=== PATIENT | female | born 1980 | race Caucasian/White ===

== ENCOUNTER 2022-01-08 10:45 | Outpatient (CLI) | payer OTHER, SELFPAY ==
--- NOTE | ~2022-01-08 | MM_ITS ---
EXAMINATION: MM screening abi BI w kennedy HISTORY: Screening mammogram; baseline examination TECHNIQUE: Craniocaudal and mediolateral oblique 3-D tomosynthesis images were obtained and synthetic 2-D images were generated. CAD analysis was submitted and interpreted. COMPARISON: No prior mammogram is available for comparison at this institution. BREAST PARENCHYMAL COMPOSITION: There are scattered areas of fibroglandular density. FINDINGS: An asymmetric approximately 1.6 cm circumscribed mass is noted in the lower mid right breas t in the inner aspect of the lower inner quadrant. Diagnostic right mammogram and right breast ultras ound examination are recommended. No suspicious mass, architectural distortion, malignant calcification, skin thickening or retraction of either breast is noted otherwise. IMPRESSION: 1. Asymmetric 1.6 cm circumscribed mass in the lower mid right breast, lower inner quadrant 2. Diagnostic right mammogram and right breast ultrasound examination are recommended BI-RADS Category 0: Incomplete: Needs additional imaging evaluation. Reviewed, dictated and finalized at location A. INERY MOVER IMPRESSION: 1. Asymmetric 1.6 cm circumscribed mass in the lower mid right breast, lower in ner quadrant 2. Diagnostic right mammogram and right breast ultrasound examination are recom mended BI-RADS Category 0: Incomplete: Needs additional imaging evaluation.
== END 2022-01-08 10:46 | disposition home or self-care (01) ==
LOC: ANHIMG 10:49
PROVIDERS: PCP Advanced Practice Midwife; Visit Provider Advanced Practice Midwife
DX: Z12.31 Encounter for screening mammogram for malignant neoplasm of breast (principal); R92.8 Other abnormal and inconclusive findings on diagnostic imaging of breast
CPT/HCPCS: 77063; 77067

== ENCOUNTER 2022-01-29 11:22 | Outpatient (CLI) | payer OTHER, SELFPAY ==
--- NOTE | ~2022-01-29 | MMUS_ITS ---
EXAMINATION: MM diagnostic abi RT w kennedy, US breast RT limited HISTORY: Right breast mass on screening mammogram TECHNIQUE: Additional 3-D tomosynthesis images of the right breast were performed and synthetic 2-D i mages were generated. CAD analysis was submitted and interpreted. High resolution limited right breas t ultrasound was performed. COMPARISON: 01/08/2022 FINDINGS: MAMMOGRAPHIC FINDINGS: There is a 1.7 x 1.1 cm oval, circumscribed, equal and low-density mass in the middle third of the lo wer-outer breast at the 5:00 location 8 cm from the nipple. ULTRASOUND: There is a 1.7 x 1.1 cm hypoechoic mass with no posterior features or internal vascularity at the 6:0 0 location 5 cm from the nipple. IMPRESSION: 1. Indeterminate right breast mass. 2. Ultrasound-guided biopsy is recommended. BI-RADS category 4, suspicious findings. Reviewed, dictated and finalized at location A. HING MACHINE OPERATOR IMPRESSION: 1. Indeterminate right breast mass. 2. Ultrasound-guided biopsy is recommended. BI-RADS category 4, suspicious findings.
== END 2022-01-29 11:23 | disposition home or self-care (01) ==
PROVIDERS: PCP Advanced Practice Midwife; Visit Provider Obstetrics & Gynecology Gynecology
DX: R92.8 Other abnormal and inconclusive findings on diagnostic imaging of breast (principal)
CPT/HCPCS: 76642; 77061; 77065; G0279

== ENCOUNTER 2022-02-12 10:05 | Outpatient (CLI) | payer OTHER, SELFPAY ==
--- NOTE | ~2022-02-12 | MMUS_ITS ---
EXAMINATION: US breast biopsy RT w image, MM post biopsy invasive RT DATE: 02/12/2022 11:55 (accession [id number]), 02/12/2022 11:51 (accession [id number]) INDICATION: Indeterminate mass of the lower right breast at the 6:00 location. Ultrasound-guided core biopsy is requested to evaluate for malignancy. TECHNIQUE AND FINDINGS: The risks and potential benefits of the procedure were discussed with the patient including bleeding and infection. A time out was performed. The skin of the right breast was prepared and draped in usua l sterile fashion. Lidocaine was used for superficial anesthesia. Lidocaine with epinephrine was used for deep anesthesia. A vacuum-assisted biopsy needle was advanced through to the outer edge of the region of interest from a lateral approach utilizing sonographic guidance. A total of five tissue core samples were obtained through the lesion. A tissue marker clip was then placed at the biopsy site. Hemostasis was achieved . A sterile bandage was applied. The patient tolerated procedure well. A small hematoma is noted at the biopsy site on the mammogram o btained for clip placement. The patient was given verbal instructions to return to the Emergency Depa rtment in the event of severe breast pain or rapid breast enlargement. A two view right breast mammog willie was obtained to document tissue marker clip placement. IMPRESSION: 1. Successful ultrasound-guided vacuum-assisted biopsy of right breast mass with tissue marker placem ent. Reviewed, dictated and finalized at location A. TING PRESS OPERATOR IMPRESSION: 1. Successful ultrasound-guided vacuum-assisted biopsy of right breast mass wit h tissue marker placement.
== END 2022-02-12 10:06 | disposition home or self-care (01) ==
PROVIDERS: PCP Advanced Practice Midwife; Visit Provider Surgery
DX: R92.8 Other abnormal and inconclusive findings on diagnostic imaging of breast (principal)
CPT/HCPCS: 19083; 88305; 88342; A4648

== ENCOUNTER 2023-05-08 09:41 | Outpatient (CLI) | payer BC, SELFPAY ==
--- NOTE | ~2023-05-08 | US_ITS ---
Pelvic ultrasound. Clinical History: Menorrhagia Technique: Realtime transabdominal and transvaginal scanning of the pelvis was performed. Color flow Doppler and Doppler spectral analysis were performed. Findings: The uterus is anteverted. The endometrial stripe has a thickness of 13 mm. No myometrial f ocal mass is identified. Cervical nabothian cysts are present. The right ovary measures 1.6 x 1.2 x 1.2 cm. No significant right ovarian or adnexal mass is seen. The left ovary measures 2.2 x 2.1 x 2.0 cm. Left ovarian simple cyst measures 2 cm in diameter. There is no evidence of free fluid in the cul de sac. Impression: 2 cm left ovarian cyst, of doubtful clinical significance. No other significant findings. Reviewed, dictated and finalized at [facility]. SUPERVISOR Impression: 2 cm left ovarian cyst, of doubtful clinical significance. No other significant findings.
== END 2023-05-08 09:42 | disposition home or self-care (01) ==
PROVIDERS: PCP Advanced Practice Midwife; Visit Provider Advanced Practice Midwife
DX: N92.1 Excessive and frequent menstruation with irregular cycle (principal); N83.292 Other ovarian cyst, left side
CPT/HCPCS: 76830; 76856

== ENCOUNTER 2023-06-17 08:31 | Outpatient (CLI) | payer BC, SELFPAY ==
[2023-06-17 09:07] LABS: Hematocrit 42.1 % (37.0-47.0); Hemoglobin 13.2 g/dL (12.0-15.0)
== END 2023-06-17 08:32 | disposition home or self-care (01) ==
LOC: ANHSURGERY 08:38
PROVIDERS: Anesthesiology; Visit Provider Obstetrics & Gynecology Gynecology
DX: D64.9 Anemia, unspecified (principal); Z01.818 Encounter for other preprocedural examination
CPT/HCPCS: 36415; 85014; 85018

== ENCOUNTER 2023-06-24 01:54 | Day surgery (SDC) | payer BC, SELFPAY ==
[2023-06-11 14:40] VITALS: BMI 36.6
--- NOTE | 2023-06-11 14:50 | PC.NURSE ---
Report to the Outpatient Waiting Room, entrance under the green pavilion located off [facility], at time 07:30AM on date 06/24/23. Planned Procedure Time: 09:30AM. Time changes happen often and if your time is changed the preop area will call you the afternoon before. - You and your visitor will be asked to self-screen and do not enter if you have any COVID symptoms. - A mask is optional within the hospital at this time. Patients may have clear liquids (water, carbonated beverages, clear teas, apple juice) until 3 hours prior to surgery (06:30AM) with a maximum of 20 ounces. - No food from midnight until time of surgery Take the following medications with a SIP of water the morning of surgery: N/A DO NOT STOP ANY OF YOUR OTHER PRESCRIPTION MEDICATIONS PRIOR TO SURGERY ?EXCEPT THE FOLLOWING Medications to discontinue per physician VITAMINS/SUPPLEMENTS Date to take last dose 06/19/22 Please no make-up, nail thai, hairspray, perfume, deodorant, or body powder the day of surgery. No jewelry (including any body piercings) or valuables the day of surgery, leave them at home. Please take a shower or bath the night before, or the morning of, surgery with an antibacterial soap. Wear comfortable, loose fitting clothing. - Jewelry must be removed prior to entering the operating room. Rings and piercings that are not removed may be cut off. - The hospital will not accept responsibility for valuables. - Please leave all valuables, including medications, at home the day of surgery. If you are going home after surgery, a licensed airport shuttle driver must drive you home. - NO public transportation without another adult if you receive anesthesia. - We recommend that an adult stay with you for 24 hours following discharge. - We also recommend that you do not drive, make important decision, drink alcoholic beverages, or take any drugs that were not prescribed by your health care provider for at least 24 hours after your discharge time. Follow any additional instructions given to you from your surgeon. If you or anyone in your household have experienced Covid symptoms in the past week, please notify your surgeon or the nurse liaison at the phone number below for possible testing. Telephone instructions given to PATIENT and asked if any additional questions and then verbalized understanding. Patient advised to call surgeon office or pre surgery nurse liaison [phone] if any additional questions.
--- NOTE | 2023-06-24 07:20 | P.HP_ITS ---
History of Present Illness History of Present Illness Consent: Risks, benefits, and alternatives have been discussed and questions answered. Patient agrees to proceed with procedure. Chief complaint: Menorrhagia Narrative: Cinthia Moeller is a 42 year old female with heavy and irregular cycles. Pelvic ultrasound was normal. It was recommended to undergo D&C hysteroscopy for further evaluation. Risks of infection, bleeding, perforation, and possible pathology are discussed. Patient voices understanding and agrees to proceed. Review of Systems Review of Systems: not repeated day of surgery; patient states no changes in status [facility] Past Medical History Medical History (Updated 06/24/23 @ 07:22 by Gabby Boyle MD) Anxiety Depression Surgical History Surgical History (Updated 06/24/23 @ 07:22 by Gabby Boyle MD) History of bilateral tubal ligation History of 2010, 2015, 2018 Family History Family History Other Diabetes mellitus Heart disease Hypertension Social History Social History Smoking status: Never smoker Second hand tobacco smoke exposure: No Alcohol intake: former Alcohol use details: USED TO DRINK 10/WEEK Substance use: never Substance use type: does not use Living arrangements: with family Spiritual care concerns: No Meds Home Medications and Allergies Home Medications Medication Instructions Recorded Confirmed Type Iron (ferrous sulfate) 1 tablet PO BID 06/11/23 06/11/23 History One Daily Women's 1 tablet PO DAILY 06/11/23 06/11/23 History Vitamin D3 1 tablet PO DAILY 06/11/23 06/11/23 History magnesium 1 tab-cap PO DAILY 06/11/23 06/11/23 History omeprazole 20 mg capsule,delayed 20 mg PO DAILY 06/11/23 06/11/23 History release Allergies Allergy/AdvReac Type Severity Reaction Status Date / Time No Known Allergies Allergy Verified 06/11/23 14:40 Exam Const: General: healthy appearing and alert Orientation/consciousness: patient oriented x3 Resp: Effort & Inspection: normal respiratory effort GI: GI Palp: Yes Soft to palpation, No Tenderness to palpation present (GI) and No Palpable mass present : External Female Exam: normal external appearance Speculum Exam - Vagina: normal appearance of the vagina and normal vaginal discharge Speculum Exam - Cervix: normal appearance of the cervix Bimanual exam- vagina & uterus: uterine size normal and consistency normal Bimanual Exam- Adnexa, other: normal adnexae and No adnexal tenderness Neuro: General: patient oriented x3 Assessment and Plan Assessment and plan (1) Menorrhagia: Code(s): N92.0 - Excessive and frequent menstruation with regular cycle Status: Acute Assessment and Plan: plan to proceed with D&C hysteroscopy
--- NOTE | 2023-06-24 07:20 | WPDHPUPDATE1 ---
History and Physical Update Update Date/Time: 06/24/23 07:20 History and Physical has been reviewed, including an updated exam of the patient. There are NO changes in the patient's condition. Risks, benefits, and alternatives have been discussed and questions answered. Patient agrees to proceed with procedure.
[2023-06-24 07:35] VITALS: BP 123/96; PULSE 84; RESP 18; TEMP 36.2; O2SAT 100
[2023-06-24] MEDS: LACTATED RINGERS 1,000 ML 30 ML IV CONT (08:00)
[2023-06-24] MEDS: ACETAMINOPHEN 500 MG TABLET 1000 MG PO (08:02)
--- NOTE | 2023-06-24 08:32 | WPDANESEPPF ---
Anes - Initial Pre Proc Eval Procedure: Operation Date: 06/24/23 09:30 Proposed Procedures p Hysteroscopy Dilation and Curettage - Gabby Boyle MD Date/Time: 06/24/23 08:32 Surgeon: Gabby Boyle MD Pre Op Diagnosis: Menorrhagia Patient Data Age: 42 Gender: F Height: 1.65 m Weight: 95.5 kg Last Vital Signs Temp 97.1 F L 06/24/23 07:35 Pulse 84 06/24/23 07:35 Resp 18 06/24/23 07:35 BP 123/96 H 06/24/23 07:35 Pulse Ox 100 06/24/23 07:35 O2 Del Method Room Air 06/24/23 07:35 Allergies Allergy/AdvReac Type Severity Reaction Status Date / Time No Known Allergies Allergy Verified 06/11/23 14:40 Home Medications Medication Instructions Recorded Confirmed Type Iron (ferrous sulfate) 1 tablet PO BID 06/11/23 06/24/23 History One Daily Women's 1 tablet PO DAILY 06/11/23 06/24/23 History Vitamin D3 1 tablet PO DAILY 06/11/23 06/24/23 History magnesium 1 tab-cap PO DAILY 06/11/23 06/24/23 History omeprazole 20 mg capsule,delayed 20 mg PO DAILY 06/11/23 06/24/23 History release Patient hx anesthesia problems: none Family hx anesthesia problems: none Results Review: All pre-operative results and documents have been reviewed as part of the pre-operative evaluation. [facility] Past Medical History Medical History Anxiety Depression Surgical History Surgical History History of bilateral tubal ligation History of 2010, 2016, 2019 Family History Family History Other Diabetes mellitus Heart disease Hypertension Social History Social History Smoking status: Never smoker Second hand tobacco smoke exposure: No Alcohol intake: former Alcohol use details: USED TO DRINK 10/WEEK Substance use: never Substance use type: does not use Living arrangements: with family Spiritual care concerns: No Anes - Eval Final PreProcedure Day of Procedure 06/24/23 08:32 Patient weight: obese Heart: regular rate and rhythm Lungs: clear to auscultation Airway: Mallampati scale Neurological: alert and oriented Last oral intake: >/= 8 hours ASA classification: II Emergent: no Anesthetic plan: proceed Anesthesia type and monitoring: general GIVS and standard monitoring Results Review: All pre-operative results and documents have been reviewed as part of the pre-operative evaluation. Informed Consent: The patient's anesthetic plan and its attendant risks and benefits were discussed with the patient/family/POA. Questions were solicited and answers provided to the satisfaction of the patient/family/POA.
[2023-06-24 09:40] VITALS: BP 109/54; PULSE 56; RESP 16; O2SAT 97
--- NOTE | 2023-06-24 09:43 | W.PM.PROC2 ---
Procedure Note - Detailed Date of Procedure 06/24/23 Pre-op Diagnosis Menorrhagia Post-op Diagnosis Same Procedure Performed hysteroscopy D&C Surgeon Gabby Boyle MD Anesthesia MAC Findings uterus sounds to 7cm and appears grossly normal Description of Procedure The patient is taken to the operating room and placed under anesthesia in the dorsal lithotomy position. She was prepped and draped in the usual sterile fashion. [place] speculum was placed in the vagina and the cervix grasped on the anterior lip with a tenaculum. Uterus is sounded to 7cm. The diagnostic hysteroscope was placed and with no abnormalities noted it is removed. The OO sharp curette is used to curette the endometrium until a good uterine cry was noted in all areas. All instruments are removed. Sponge, needle, and instrument counts are correct per the OR staff. Patient was awakened from anesthesia and taken to recovery in stable condition. Estimated Blood Loss 5 Drains No Packing No Pathology Yes ( Endometrial curettings) Complications No immediate complications Condition Stable Disposition PACU
[2023-06-24 10:10] VITALS: BP 121/51; PULSE 82
== END 2023-06-24 10:30 | disposition home or self-care (01) ==
PROVIDERS: Visit Provider Obstetrics & Gynecology Gynecology
PROC: 0U5B8ZZ Destruction of Endometrium, Via Natural or Artificial Opening Endoscopic (ICD-10-PCS; CPT 58563; principal; 2023-06-24 09:30)
DX: N92.0 Excessive and frequent menstruation with regular cycle (principal); F41.9 Anxiety disorder, unspecified; F32.A Depression, unspecified; E66.9 Obesity, unspecified; Z68.35 Body mass index [BMI] 35.0-35.9, adult; Z98.890 Other specified postprocedural states; Z82.49 Family history of ischemic heart disease and other diseases of the circulatory system
CPT/HCPCS: 58558; 88305; A9270; J1100; J1885; J2250; J2405; J2704; J3010; J7120

== ENCOUNTER 2023-08-28 12:44 | Outpatient (CLI) | payer BC, SELFPAY ==
--- NOTE | ~2023-08-28 | US_ITS ---
US pelvic complete w TV Ordering provider: Whitney Mitchell CNM History: . Pelvic pain, IUD strings . Comparison: None. Technique: Transabdominal and endovaginal ultrasound of the pelvis (Doppler ultrasound interrogation techniques used as needed for this exam.) FINDINGS: CERVIX: Normal. UTERUS: Measures 8.6x 4.9x 5.2 cm in length which is within normal limits and is anteverted. No myom etrial masses. ENDOMETRIUM: Normal in thickness measuring 5 mm. IUD is noted. CUL DE SAC: No free fluid. RIGHT OVARY: Normal in size measuring 2.9x 2.7x 2.5 cm. Cyst is seen in the right ovary measuring 2.3 x 2.2 x 2.2 cm. Normal echotexture. Doppler vascular flow present. LEFT OVARY: Not seen. ADNEXA: Normal. No mass. IMPRESSION: Right ovarian cyst. Otherwise, normal pelvic ultrasound. Reviewed, dictated and finalized at location A.
== END 2023-08-28 12:45 ==
LOC: GOSHIMG 12:45
PROVIDERS: Visit Provider Advanced Practice Midwife
DX: T83.32XA Displacement of intrauterine contraceptive device, initial encounter (principal); R10.2 Pelvic and perineal pain; N83.201 Unspecified ovarian cyst, right side
CPT/HCPCS: 76830; 76856

== ENCOUNTER 2023-10-07 09:15 | Outpatient (CLI) | payer BC, SELFPAY ==
--- NOTE | ~2023-10-07 | US_ITS ---
US pelvic complete w TV Ordering provider: Gabby Boyle MD History: . f/u Right ovarian cyst . Comparison: None. Technique: Transabdominal and endovaginal ultrasound of the pelvis (Doppler ultrasound interrogation techniques used as needed for this exam.) FINDINGS: CERVIX: Normal. UTERUS: Measures 7.4x 5.3x 1.1 cm in length which is within normal limits and is anteverted. No myom etrial masses. IUD is seen in the uterus. ENDOMETRIUM: Normal in thickness measuring 4 mm. No endometrial masses, cysts or fluid. CUL DE SAC: No free fluid. RIGHT OVARY: Normal in size measuring 3.4x 3.6x 3.1 Normal echotexture. Doppler vascular flow present . Cyst is seen measuring 3.1 x 3.1 x 2.8 cm. LEFT OVARY: Not seen. ADNEXA: Normal. No mass. IMPRESSION: Right ovarian cyst. Otherwise, normal pelvic ultrasound. Reviewed, dictated and finalized at location A.
== END 2023-10-07 09:16 ==
LOC: GOSHIMG 09:16
PROVIDERS: PCP Obstetrics & Gynecology Gynecology; Visit Provider Obstetrics & Gynecology Gynecology
DX: N83.201 Unspecified ovarian cyst, right side (principal)
CPT/HCPCS: 76830; 76856

== ENCOUNTER 2023-12-02 09:45 | Outpatient (CLI) | payer BC, SELFPAY ==
--- NOTE | ~2023-12-02 | US_ITS ---
EXAMINATION: US pelvic complete w TV INDICATION: Follow-up right ovarian cyst Comparison:Ultrasound dated 10/07/2023 TECHNIQUE: Multiple transabdominal and endovaginal sonographic images of the pelvis performed. FINDINGS: The uterus measures 8.1 x 5.6 x 3.9 cm. IUD present in the endometrium. The endometrial com plex measures 5 mm. The right ovary measures 2 x 1.8 x 1.6 cm and the left ovary is not visualized. Interval resolution o f right ovarian cyst. Normal Doppler signal in the right ovary. There is no free fluid in the pelvis. There are no abnormal masses seen on either side. IMPRESSION: 1. Unremarkable pelvic ultrasound. Reviewed, dictated and finalized at location B.
== END 2023-12-02 09:46 | disposition home or self-care (01) ==
PROVIDERS: PCP Obstetrics & Gynecology Gynecology; Visit Provider Obstetrics & Gynecology Gynecology
DX: N83.201 Unspecified ovarian cyst, right side (principal)
CPT/HCPCS: 76830; 76856